=== PATIENT | female | born 1970 | race Caucasian/White ===

== ENCOUNTER 2019-04-08 06:15 | Day surgery (SDC) | payer MEDICAID, SELFPAY ==
--- NOTE | 2019-04-05 11:01 | HP.PCM_ITS ---
History and Physical Date of Admission: 04/08/19 Delores Rhodes Physician MIRROR PAINTER H&P Signed Encounter Date: 03/18/2019 Expand All Collapse All Hide copied text Cooper for details Nerissa Fitzgerald is a 48 year old female who presents for AUB. Pt had attempted in office ablation with subsequent uterine perforation. Pt is scheduled at [facility] on 04/08/19 for Hysteroscopy, Ablation. Pt denies any concerns today. Denies CP, SOB, dizziness. ? PAST?MEDICAL?HISTORY PAST MEDICAL HISTORY Diagnosis Date ? Anxiety ? ? Back injury ? ? Depression ? ? GERD (gastroesophageal reflux disease) ? ? Insomnia ? ? Prediabetes ? ? Scoliosis ? ? PAST?SURGICAL?HISTORY PAST SURGICAL HISTORY Procedure Laterality Date ? SECTION HX ? ? ? x2 ? ESSURE ? ? ? RETROGRADE URETHROGRAM ? ? ? S SLING BLADDER ? ? ? FAMILY?HISTORY FAMILY HISTORY Problem Relation Age of Onset ? Stroke Mother ? ? Mom side family all females diagnosed with [place] causing TIAs ? other (hysterectomy) Mother ? ? No Known Problems Father ? ? other (ablation) Sister ? ? Stroke Maternal Grandmother ? ? Heart Maternal Grandfather ? ? Diabetes Maternal Grandfather ? ? No Known Problems Paternal Grandmother ? ? No Known Problems Paternal Grandfather ? ? other (ovary removal) Daughter ? ? SOCIAL?HISTORY Social History Socioeconomic History Marital status: Single Spouse name: Not on file Number of children: Not on file Years of education: Not on file Highest education level: Not on file Occupational History Occupation: retail Employer: [employer] Occupation: [employer]ER Comment: still has license Social Needs Financial resource strain: Not on file Food insecurity: Worry: Not on file Inability: Not on file Transportation needs: Medical: Not on file Non-medical: Not on file Tobacco Use Smoking status: Never Smoker Smokeless tobacco: Never Used Substance and Sexual Activity Alcohol use: Yes Alcohol/week: 7.5 standard drinks Types: 3 Glasses of Wine (5oz) per week Comment: socially on weekends Drug use: No Sexual activity: Yes Partners: Male control/protection: None Lifestyle Physical activity: Days per week: Not on file Minutes per session: Not on file Stress: Not on file Relationships Social connections: Talks on phone: Not on file Gets together: Not on file Attends pentecostalism service: Not on file Active member of club or organization: Not on file Attends meetings of clubs or organizations: Not on file Relationship status: Not on file Intimate partner violence: Fear of current or ex partner: Not on file Emotionally abused: Not on file Physically abused: Not on file Forced sexual activity: Not on file Other Topics Concerns: Not on file Social History Narrative Not on file ? CURRENT?MEDICATIONS ? Current Outpatient Medications: ferrous sulfate 325 mg (65 mg iron) tablet Take 1 tablet by mouth twice daily with meals. buPROPion XL (WELLBUTRIN XL) 150 mg 24 hr tablet Take 1 tablet by mouth once daily. Omeprazole Magnesium (PRILOSEC OTC) 20 mg tablet Take 1 tablet by mouth daily before breakfast. 1/2 hr before meal. miSOPROStol (CYTOTEC) 200 mcg tablet Take two tablets PO night before procedure and two tablets morning of procedure fluconazole (DIFLUCAN) 150 mg tablet Take one tablet today and repeat in 3 days. Then take one tablet weekly x 6 months. clotrimazole-betamethasone (LOTRISONE) cream Apply 1 application to affected area twice daily. (Patient not taking: Reported on 02/22/2019 ) ? No current facility-administered medications for this visit. Allergies As of Date: 03/18/2019 (No Known Allergies) Fully Assessed 03/18/2019 ? ? REVIEW OF SYSTEMS Abdomen: no pain Bladder: no dysuria .. Expanded ROS: GENERAL: Negative for fever Allergies and current medication updated:Yes ? EXAM: BP 102/60 Ht 5' 2 (1.58m) Wt 172 lb (78.0kg) LMP 03/04/2019 BMI 31.45 kg/(m^2). ? GENERAL: pleasant, female in no apparent distress HEENT: Normocephalic, atraumatic and mucus membranes moist NECK: full range of motion DERMATOLOGY: Normal, without lesions, non-icteric and non-hirsute CARDIAC: regular rate and rhythm CHEST: Clear to auscultation Normal inspiratory effort NEURO: alert and oriented x3,exam grossly non-focal EXTREMITIES: normal ? Overall impression: Uterus top normal size appears to be globular in appearance. ? No endometrial lesions appreciated. ?The endometrial thickness measured 11.9 mm. ? There is a small fibroid measuring 1.9 cm in greatest dimension that is intramural ?in location. Right and left ovaries appear normal No free fluid appreciated. Follow- up: Follow-up as clinically indicated. Indication: Abnormal Uterine Bleeding. Relevant history: contraception: IUCD. Essure. Gynecological Ultrasonography: Uterus: Retroflexed. Size: Longitudinal 96 mm. Anterio- posterior 46 mm. Transverse 55 mm. Volume: 127.2 ml. Fibroids: Fibroid 1: Size: 18 mm x 16 mm x 19 mm. Method visualized: anterior. Endometrium thickness total: 11.9 mm. Right Ovary: visualized. Visible. Right Ovary size: 30 mm x 23 mm x 24 mm. Volume: 8.7 ml. Left Ovary: visualized. Visible. Left Ovary size: 19 mm x 20 mm x 13 mm. Volume: 2.6 ml. Cul de Sac / Pouch of Maurice: no free fluid visible. Method: transvaginal ultrasound, transabdominal ultrasound, color Doppler, 2 D, 3 D. Performed by:Marj Drummond RDMS Read by:Delores Bain MD ? ? ASSESSMENT AND PLAN: Encounter Diagnosis ? ? ICD-10-CM ? 1. Abnormal uterine bleeding (AUB) N93.9 miSOPROStol (CYTOTEC) 200 mcg tablet ? 2. Pt has been counseled on risks/benefits and alternatives of surgery including but not limited to anesthesia, bleeding, infection, uterine perforation with subsequent injury to pelvic structures including bowel, bladder, and vessels. Pt wishes to proceed with surgery at this time. 3. Consent signed ? ? ? Delores Arguelles MD ?3:01 PM Office Visit on 03/18/2019
[2019-04-08] VITALS (7 sets, daily range): BP systolic 83–125; BP diastolic 54–71; PULSE 67–79; RESP 16; TEMP 36.3–36.9; O2SAT 92–100; BMI 31.7
[2019-04-08 06:41] LABS: Hematocrit 36.5 % (37-47); Hemoglobin 11.8 g/dL (12.0-15.0); Mean Corp Hgb Conc 32.3 g/dL (32-36); Mean Corpuscular Hgb 30.6 pg (27.0-32.0); Mean Corpuscular Volume 94.6 fL (81-99); Mean Platelet Vol. 8.7 fl (6.2-12.0); Platelet Count 358 K/mm3 (150-450); RBC Distribution Width CV 13.3 % (11.6-14.6); Red Blood Count 3.86 M/mm3 (4.2-5.4); White Blood Count 5.3 K/mm3 (4.4-11.0)
[2019-04-08 07:29] LABS: Internal QC Validated? YES +Cl - CLEAR BKGD; Pregnancy, Urine Negative Negative
--- NOTE | 2019-04-08 07:58 | DCINST_ITS ---
Discharge Diet: No Restrictions Discharge Activity: Return to Normal Activity, May Shower, May Take a Tub Bath - in 1 weeks. May resume sexual activity in: 2 weeks Call your doctor if you observe: Fever of 101 or Higher, Using more than one pad per hour Allergies/Adverse Reactions: Allergies No Known Allergies Allergy (Verified 04/01/19 11:58) Medications to take at Discharge Ferrous Sulfate 325 mg PO BIDCM 04/01/19 buPROPion XL [Wellbutrin Xl] 150 mg PO DAILY 04/01/19 Primary Care Physician: Christina Myles MD [Primary Care Provider] - Test Results: Test results from this visit will be discussed in further detail at your follow- up appointment, if applicable. Please Follow Up With: Delores Arguelles MD When: 2 weeks
--- NOTE | 2019-04-08 08:00 | OP.PCM_ITS ---
Report of Operation Date of Procedure: 04/08/19 Pre-Operative Diagnosis: AUB Post-Operative Diagnosis: same Surgery/Procedure Performed:: hysteroscopy, Ginger Ablation Description of Surgical Findings:: Uterus total sounding to 10 cm endocervical canal 4 cm. There were no gross abnormalities of the uterus. Site of previous perforation appeared to be well- healed no signs of uterine cavity anomaly. Both tubal ostia were visualized. Type of Anesthesia:: MAC Specimen's removed: none Drains: none Estimated Blood Loss (mL): <5cc Fluids Replaced: 800 Description of Procedure: After informed consent was obtained patient taken to the operating room she is placed in supine position she is given anesthesia simply self insert she is prepped draped normal sterile fashion. Bladder was drained prior to the start of the procedure. At this time the weighted speculum was placed the posterior f ornix of the vagina then a single-tooth tenaculum was used to grasp the anterior lip of the cervix. At this time the uterus was sounded to approximately 10 cm the endocervical canal sounded to 4 cm. Next cervix was dilated in incremental fashion. Once adequate dilatation was achieved the hysteroscope was inserted using normal saline as distention medium. On hysteroscopy there were no gross abnormalities. Both tubal ostia were visualized. At this time the Ginger device was opened. The Ginger was set at 6 cm. The device was activated. Prior to activation the field test was performed and cavity was intact. The device was then fired and activated for 120 seconds. Once the 120 seconds was completed the device was removed intact and the tenaculum was removed. Good hemostasis was appreciated. Weighted speculum was removed. Vaginal sweep was performed is negative. There were no complications. Anticipated normal postoperative course for this patient. Instrument and lap count were correct ?2. Grafts/Implants Used: none - Complications none - Admit VTE Documentation VTE Present on Admission: Yes VTE Mechan Device Prophylaxis: SCD's VTE Pharm Prophylaxis ordered?: Yes
[2019-04-08] MEDS: Lactated Ringers 1,000 ML 100 ML IV (08:16)
== END 2019-04-08 09:22 | disposition home or self-care (01) ==
LOC: SDC 06:19 → AC 06:20
PROVIDERS: Family Provider Internal Medicine; PCP Internal Medicine; Referring Provider Obstetrics & Gynecology; Visit Provider Obstetrics & Gynecology
PROC: 0U5B8ZZ Destruction of Endometrium, Via Natural or Artificial Opening Endoscopic (ICD-10-PCS; CPT 58558; principal; 2019-04-08 07:15)
DX: N93.9 Abnormal uterine and vaginal bleeding, unspecified (principal); F41.9 Anxiety disorder, unspecified; F32.9 Major depressive disorder, single episode, unspecified; K21.9 Gastro-esophageal reflux disease without esophagitis; M41.9 Scoliosis, unspecified; K44.9 Diaphragmatic hernia without obstruction or gangrene; D64.9 Anemia, unspecified; Z79.899 Other long term (current) drug therapy
CPT/HCPCS: 58563; 81025; 85027; J7120; J2405

== ENCOUNTER 2022-01-10 06:49 | Day surgery (SDC) | payer MEDICAID, SELFPAY ==
[2022-01-10] VITALS (12 sets, daily range): BP systolic 96–138; BP diastolic 3–69; PULSE 72–88; RESP 16–18; TEMP 36.1–36.9; O2SAT 97–99; BMI 30.3
--- NOTE | 2022-01-10 06:54 | EKG12_ITS ---
Test Reason : PRE OP Blood Pressure : / mmHG Vent. Rate : 092 BPM Atrial Rate : 092 BPM P-R Int : 130 ms QRS Dur : 074 ms QT Int : 378 ms P-R-T Axes : 068 -12 050 degrees QTc Int : 467 ms Normal sinus rhythm Poor R wave progression Confirmed by LUIZA AMBROSE, WALI ([id number]), editor managing newspaper DANTE HOFF ([id number]) on 01/12/2022 7:35:15 AM Referred By: ELADIO Confirmed By:WALI JARRETT MD
[2022-01-10] MEDS: Phenazopyridine 95 MG Tablet 190 MG PO (07:36)
[2022-01-10] MEDS: Enoxaparin 40 MG/0.4 ML Syringe SC (07:36)
[2022-01-10] MEDS: Gabapentin 600 MG Tablet PO (07:37)
[2022-01-10] MEDS: Celecoxib 200 MG Capsule 400 MG PO (07:37)
[2022-01-10] MEDS: Lactated Ringers 1,000 ML 40 ML IV (07:37)
[2022-01-10] MEDS: Acetaminophen 500 MG Tablet 1000 MG PO (07:37)
[2022-01-10 07:38] LABS: Hematocrit 44.8 % (37-47); Hemoglobin 14.6 g/dL (12.0-15.0); Mean Corp Hgb Conc 32.6 g/dL (32-36); Mean Corpuscular Hgb 31.3 pg (27.0-32.0); Mean Corpuscular Volume 96.1 fL (81-99); Mean Platelet Vol. 9.1 fl (6.2-12.0); Platelet Count 406 K/mm3 (150-450); RBC Distribution Width CV 11.9 % (11.6-14.6); RBC Distribution Width SD 41.2 fl (35.1-43.9); Red Blood Count 4.66 M/mm3 (4.2-5.4); White Blood Count 8.9 K/mm3 (4.4-11.0)
[2022-01-10 07:43] LABS: Internal QC Validated? YES +Cl - CLEAR BKGD; Pregnancy, Urine Negative Negative
[2022-01-10 07:50] LABS: Bedside Glucose 129 mg/dL (74-106)
[2022-01-10 07:52] LABS: Anion Gap 8 (5-15); BUN 6 mg/dL (7-18); BUN/Creat Ratio 8.9 RATIO (10-20); Calcium,Total 9.2 mg/dL (8.5-10.1); Chloride 106 mmol/L (98-107); Creatinine, Serum 0.68 mg/dL (0.55-1.02); EST Glomerular Filtration Rate 98 mL/min (>60); Est Glom Filt Rate - Afr Amer 118 mL/min (>60); Estimated Creatinine Clearance 77.41 ml/min; Glucose 112 mg/dL (74-106); Potassium 3.9 mmol/L (3.5-5.1); Sodium Level 137 mmol/L (136-145)
[2022-01-10 08:08] LABS: Magnesium 2.1 mg/dL (1.6-2.6)
--- NOTE | 2022-01-10 08:29 | PCM.PN.BLA ---
Progress Note I have re-examined the patient. There are no clinical changes since date of exam. Please see the photocopied H&P in the patient's chart
[2022-01-10] MEDS: Bupivacaine 0.25% 30 ML Vial (08:40)
[2022-01-10] MEDS: Cefazolin 2 GM in 0.9% Normal Saline 100 ML IV (08:50)
--- NOTE | 2022-01-10 08:50 | HYST_PTH ---
PATIENT: STACIE PARKS LOC: [facility] [place] U#:[id number] AGE/SX: 51/F ROOM: RE01/10/[address]: Dr. Delores Arguelles, MDDOB: 1970 BED: DIS: 01/10/2022 SPEC #: [id number] RECD: 01/10/22 10:59 STATUS: MERNA ROSE MARY #: [id number] AMANDA: 01/10/22 08:[address]: Delores Arguelles DEPT: SURGICAL PATHOLOGY RECD BY: Rebekah Beckham ENTERED: 01/10/22 11:30 SP TYPE: HYSTERECT OTHR DR: Dr. Christina Myles MD Tissues: Uterus, NOS Procedures: Surgery Specimen Level V HEADER OPERATION: ERAS, total lap hysterectomy, salpingectomy, cystoscopy PRE-OP DIAGNOSIS: Post ablation syndrome TISSUE SUBMITTED: Uterus, cervix, bilateral fallopian tubes MICROSCOPIC DIAGNOSIS Uterus, cervix, bilateral fallopian tubes, hysterectomy and bilateral salpingectomy: Cervix ? chronic cystic cervicitis. Endometrium ? weakly proliferative endometrium. Myometrium ? diffuse adenomyosis. - An intramural leiomyoma (2 cm in diameter). Bilateral fallopian tubes - no pathologic diagnosis. SJ:rg 01/11/2022 MICROSCOPIC DESCRIPTION Slides are reviewed. GROSS DESCRIPTION Received in fixative is one container labeled with the patient's name and designated uterus, cervix, bilateral fallopian tubes. The specimen consists of a hysterectomy specimen consisting of uterus with cervix and detached bilateral fallopian tubes. The uterus with cervix weighs 94 gm and measures 9 x 7 x 4 cm. The serosal surface is focally ragged. The ectocervical mucosa is unremarkable. The external os is circular in contour. The endocervical canal measures 3 cm in length and the endocervical mucosa is haq, glistening and unremarkable. Sections of the cervix reveal a few cysts filled with mucoid material. The triangular endometrial cavity measures 4.5 cm in length and up to 2.5 cm in width. The endometrium is haq, glistening without any mass lesion and measures 0.1 cm in thickness. Sections of the uterine wall reveal a haq nodular mass in the anterior uterine measuring 2 cm in diameter. Sections of this mass reveals haq whorled cut surfaces without areas of hemorrhage, necrosis or cystic degeneration. Sections of the uterine wall also reveal trabeculated cut surfaces with focal area of punctate hemorrhage suspicious for adenomyosis. The uterine wall measures up to 2.5 cm in thickness. The fallopian tubes are not identified as right or left and measures 5 cm in length and 0.7 cm in diameter and 4.5 cm in length and 1 cm in diameter. Fimbrial ends are identified. Sections reveal unremarkable cut surfaces. Truck Mechanic sections are submitted in nine cassettes as follows: 1 - anterior cervix, 2??posterior cervix, 3 & 4 - anterior uterine wall, 5 & 6 - posterior uterine wall, 7 - nodular mass, 8 - one fallopian tube, 9 - second fallopian tube. / KELLY:ulices 01/10/2022 TC:5 CPT: 73769
[2022-01-10] MEDS: dexAMETHasone 10 MG/ML Vial 8 MG IV (09:05)
[2022-01-10] MEDS: Ondansetron 4 MG/2 ML Vial IV (10:15)
--- NOTE | 2022-01-10 10:19 | PCM.DC ---
Discharge Instructions Diet Discharge Diet: No restrictions Activity Discharge Activity: May Not Drive (while taking narcotics. may drive when pain controlled. ) and May Shower Return to work on:: 12/21/20 May shower in (days): 1 May resume sexual activity in: 6-8 weeks Weight Bearing Status: Full weight bearing Lifting Restrictions: 20 Additional Activity Instructions:: NOTHING IN THE VAGINA x 6-8 weeks. Dressing / Incision Call your doctor if your incision/area has: Continuous Slow Oozing, Sudden Increased Bleeding, Increased Pain/ Swelling, Increased Redness, Foul Smelling Discharge and Swelling at the incision site Call your doctor if you observe: Fever of 101 or Higher, Inability to have a bowel movement, Using more than 1 pad per hour and Uncontrolled pain Change Dressing in: leave in place till F/U (you have skin glue over incision sites- do not pick off) Cleanse incision/area with: Soap & Water, Keep Dressing Clean & Dry and - (you may let soap and water run over incision sites and dab dry. ) Follow Up Care Please Follow Up With: Delores Arguelles MD When: 2 weeks as scheduled for post op visit Test Results: Test results from this visit will be discussed in further detail at your follow-up appointment, if applicable. Discharge Plan Admission Attending Provider: Delores Arguelles Primary Care Provider: Christina Myles Discharge Orders/Prescriptions Prescriptions: No Action ibuprofen 400 MG tablet 800 mg PO Q8H PRN PRN (Reason: Pain) Qty: 30 0RF phentermine 37.5 mg tablet 1 tab PO DAILY Label Comments: TAKE 1 TABLET BY MOUTH ONCE DAILY BEFORE BREAKFAST FOR 30 DAYS escitalopram oxalate [Lexapro] 10 mg tablet 1 tab PO DAILY Label Comments: TAKE 1 TABLET BY MOUTH ONCE DAILY Other Ambulatory Orders: Magnesium (Routine) Timeframe: [id number] Facility: [facility] - Location: Laboratory Ordered By: Dr. Luan Rosado Referrals / Follow Up: Christina Myles MD [Primary Care Provider] - Disposition Disposition (needs filled in before D/C Order can be placed): Home, Self Care
--- NOTE | 2022-01-10 10:20 | OP.PCM_ITS ---
Report of Operation Date of Procedure: 01/10/22 Pre-Operative Diagnosis: AUB, Pelvic pain, s/p endometrial ablation Post-Operative Diagnosis: same Surgery/Procedure Performed:: TLH, Bilateral salpingectomy, cystoscopy Description of Surgical Findings:: Normal Ovaries, fallopian tubes and uterus. Surgeon: Delores Arguelles director of corporate sales: Loli Howard Special Medications: .25% marcaine Specimen's removed: uterus, cervix, bilateral fallopian tubes Drains: none Estimated Blood Loss (mL): 25 Fluids Replaced: 1300 Description of Procedure: Patient take to OR and prepped and draped in usual sterile fashion in dorsal lithotomy position with her arms tucked in a neurologically safe and neutral position. Stenotic cervix but able to penetrate wtih sound- The uterus sounded to 7.5 cm. The electronic prepress system operator uterine manipulator was sutured into place at 6:00 position and renteria was placed. Attention was turned to the abdomen. All port sites were infiltrated with .25%marcaine before the incisions were made. The anterior abdominal wall was tented up with towel clamps and using a direct entry approach a 5 mm intraumbilical port was placed. Intraperitoneal placement was confirmed with the laparoscope and the pneumoperitoneum was created. The patient was placed in Trendelenburg and 5 mm right and left lower quadrant ports were placed under direct visualization. Air seal rapid insufflator was used. The bowel was swept away. Ovaries appeared normal. The mesosalpinx starting at fimbriated end were grasped, clamped, sealed and transected with the Ligasure. The round ligaments were divided. The anterior peritoneum was dissected down to create the bladder flap with blunt dissection and the LigaSure. The uterine arteries were isolated, clamped, sealed and cut. There was minimal back bleeding from the uterus. Straight bites on uterine artieries performed to drop them off the cuff. The electronic prepress system operator cup was used as guide to create colpotomy using monopolar tip of ligasure. once specimen was removed attention was turned to vaginal portion. The specimen was handed off. The cuff was closed with interrupted 0-vicryl figure of 8 sutures. Cystoscopy was performed bilateral ureters were visualized with good efflux. bladder was intact. renteria replaced and sponge stick placed in vagina. The pneumoperitoneum was recreated and the cuff and pedicles were hemostatic. Marni was placed over cuff and pedicles. The skin incisions were closed with skin glue and 3-0 monocryl in the LLQ port site. The vaginal sweep was completed by me. Grafts/Implants Used: none Grafts/Implants Used: none Procedure Start Time: 09:11 Procedure Stop Time: 10:23 Complications none Admit VTE Documentation VTE Present on Admission: Yes VTE Mechan Device Prophylaxis: SCD's VTE Pharm Prophylaxis ordered?: Yes
[2022-01-10 12:24] LABS: Hematocrit 39.3 % (37-47); Hemoglobin 12.9 g/dL (12.0-15.0); Mean Corp Hgb Conc 32.8 g/dL (32-36); Mean Corpuscular Hgb 31.6 pg (27.0-32.0); Mean Corpuscular Volume 96.3 fL (81-99); Mean Platelet Vol. 9.2 fl (6.2-12.0); Platelet Count 359 K/mm3 (150-450); RBC Distribution Width CV 11.9 % (11.6-14.6); RBC Distribution Width SD 41.6 fl (35.1-43.9); Red Blood Count 4.08 M/mm3 (4.2-5.4)
[2022-01-10] MEDS: HYDROcodone Bitartrate/Apap 5/325 Tablet PO (13:20)
== END 2022-01-10 13:47 | disposition home or self-care (01) ==
LOC: SDC 06:50 → AC 06:52
PROVIDERS: PCP Internal Medicine; Visit Provider Obstetrics & Gynecology
PROC: 0UT94ZZ Resection of Uterus, Percutaneous Endoscopic Approach (ICD-10-PCS; CPT 58571; principal; 2022-01-10 08:30)
DX: D25.1 Intramural leiomyoma of uterus (principal); F41.9 Anxiety disorder, unspecified; F32.A Depression, unspecified; K21.9 Gastro-esophageal reflux disease without esophagitis; M41.9 Scoliosis, unspecified; Z79.899 Other long term (current) drug therapy; N80.0 Endometriosis of uterus
CPT/HCPCS: 58571; 00840; 80048; 81025; 82962; 83735; 85027; 86850; 86900; 86901; 88307; 93005; J7120; J2405